=== PATIENT | female | born 1995 | race Caucasian/White ===

== ENCOUNTER 2021-06-06 04:05 | Emergency (ER) | payer BC, SELFPAY ==
--- NOTE | ~2021-06-06 | CT_ITS ---
EXAMINATION: CT abdomen pelvis w con DATE: 06/06/2021 05:55 INDICATION: Generalized abdominal pain, nausea and vomiting TECHNIQUE: Computed tomography (CT) of the abdomen and pelvis was performed with 100 cc Omnipaque 350 intravenous contrast. The dose-length product was 198.25 mGy-cm. Automated exposure control and iter ative reconstruction technique were employed. COMPARISON: None. FINDINGS: Lung bases are unremarkable. Heart size normal. No significant pleural or pericardial effus ion. No significant vascular abnormality. No lymphadenopathy. There is mild prominence of the colon w all, likely due to underdistention and normal contractility. No evidence for acute appendicitis. Nono bstructive bowel gas pattern. Fatty infiltration of the liver. The spleen, pancreas, adrenal glands and kidneys are unremarkable. G allbladder is present. There is levoscoliosis of the thoracolumbar spine. No acute osseous abnormalit y. There is an intravaginal contraceptive device. No free air or free fluid. IMPRESSION: 1. No acute abdominal abnormality. Reviewed, dictated and finalized at location A. SHOP SERVICE TECHNICIAN
[2021-06-06 04:11] VITALS: BP 134/93; PULSE 124; RESP 16; TEMP 36.7; O2SAT 100
--- NOTE | 2021-06-06 04:19 | ED.ABDPAIN ---
HPI - Abdominal Pain General Chief Complaint: Abdominal Pain <Luiz Cantrell MD - Last Filed: 06/06/21 07:16> Stated Complaint: Abd pain, N/V <Luiz Cantrell MD - Last Filed: 06/06/21 07:16> Time Seen by Provider: 06/06/21 04:09 <Luiz Cantrell MD - Last Filed: 06/06/21 07:16> History of Present Illness HPI narrative: 25-year-old female presenting to the emergency department for evaluation of nausea vomiting diarrhea. Patient states symptoms started approximately 4:00 today. Patient was having excessive diarrhea at work and went home and since going home she has had nonstop nausea and vomiting. Patient does describe intermittent left upper quadrant cramping that is worsened with emesis. Patient denies any previous abdominal surgical history. Patient denies any significant past medical history. <Luiz Cantrell MD - Last Filed: 06/06/21 07:16> Related Data Home Medications: Home Medications Medication Instructions Recorded Confirmed etonogestrel-ethinyl estradiol vag ring VAGINAL 06/06/21 [EluRyng] <Luiz Cantrell MD - Last Filed: 06/06/21 07:16> Allergies/Adverse Reactions: Allergies Allergy/AdvReac Type Severity Reaction Status Date / Time Sulfa (Sulfonamide Allergy Mild Hives Verified 06/06/21 04:23 Antibiotics) <Luiz Cantrell MD - Last Filed: 06/06/21 07:16> Review of Systems Review of Systems: APPEARANCE: Well appearing, no pain, no distress, well-nourished. HEAD: normocephalic, atraumatic. EYES: PERRLA/EOMI, conjunctivae clear. NECK: Supple. No adenopathy, no masses. RESPIRATORY: Airway patent, respirations nonlabored. Clear to auscultation bilaterally, no rales, rhonchi, wheezing. CARDIOVASCULAR: Regular rate and rhythm without murmurs rubs or gallops. ABDOMINAL: Nausea vomiting diarrhea, abdominal cramping MUSCULOSKELETAL: Moves all extremities. Strength/ROM intact, No edema, No calf tenderness. NEURO: Alert. SKIN: Warm, dry. Normal Color PSYCHIATRIC: Normal affect/mood. <Luiz Cantrell MD - Last Filed: 06/06/21 07:16> Exam Narrative: APPEARANCE: Well appearing, no pain, no distress, well-nourished. HEAD: normocephalic, atraumatic. EYES: PERRLA/EOMI, conjunctivae clear. NOSE: Normal no drainage RESPIRATORY: Airway patent, respirations nonlabored. Clear to auscultation bilaterally, no rales, rhonchi, wheezing. CARDIOVASCULAR: Regular rate and rhythm without murmurs rubs or gallops. ABDOMINAL: Mild right upper quadrant tenderness to palpation MUSCULOSKELETAL: Moves all extremities. Strength/ROM intact, No edema, No calf tenderness. NEURO: Alert. Cranial nerves II through XII intact. Good gait. Good coordination SKIN: Warm, dry. Normal Color <Luiz Cantrell MD - Last Filed: 06/06/21 07:16> Course Course Emergency Course: Patient was treated with Zofran and with Reglan for nausea. Patient was treated with Tylenol for her abdominal pain. On reevaluation patient states she does feel improved. At time of signout to Dr. Sun with a CT abdomen is pending. Anticipated plan is discharged to home pending the CT result. <Luiz Cantrell MD - Last Filed: 06/06/21 07:16> Received signout on the patient pending CT scan. Patient symptoms are improving at the time of signout. <Roland Sun MD - Last Filed: 06/06/21 12:21> Reevaluation(s) Reevaluation #1: Patient is resting comfortably reports feeling much improved results and plan reviewed with patient. Patient is comfortable with outpatient plan. <Roland Sun MD - Last Filed: 06/06/21 12:21> Date: 06/06/21 <Roland Sun MD - Last Filed: 06/06/21 12:21> Time: 08:07 <Roland Sun MD - Last Filed: 06/06/21 12:21> Vital Signs Vital signs: Vital Signs Temperature 36.7 C 06/06/21 04:11 Pulse Rate 124 H 06/06/21 04:11 Respiratory Rate 16 06/06/21 04:11 Blood Pressure 134/93 H 06/06/21 04:11 Pulse Oximetry 100 06/06/21
[2021-06-06] MEDS: SODIUM CHLORIDE 0.9% IV 1,000 ML 999 ML IV CONT ×2 (04:25→06:01)
[2021-06-06] MEDS: ONDANSETRON INJ 4 MG/2 ML VIAL IV PUSH (04:25)
[2021-06-06 04:58] LABS: Basophils Percent Auto 0.2 % (0.2-1.2); Eosinophils Absolute Auto 1.3 K/mm3 (0-0.3); Eosinophils Percent Auto 7.9 % (0-4.4); Hematocrit 45.7 % (37.0-47.0); Hemoglobin 16.2 g/dL (12.0-15.0); Immature Granulocyte Absolute 0.12 K/mm3 (0.00-0.031); Immature Granulocyte Percent A 0.7 % (0-0.5); Lymphocytes Absolute Auto 0.29 K/mm3 (0.9-3.2); Lymphocytes Percent Auto 1.8 % (18.3-44.2); Mean Corpuscular HGB Conc 35.4 g/dl (32-36); Mean Corpuscular Hemoglobin 31.2 pg (26-34); Mean Corpuscular Volume 87.9 fl (80-100); Mean Platelet Volume 9.9 fl (7.4-10.4); Monocytes Absolute Auto 0.3 K/mm3 (0.1-0.6); Monocytes Percent Auto 1.9 % (2.6-8.5); Neutrophils Absolute Auto 14.5 K/mm3 (1.3-6.7); Neutrophils Percent Auto 87.5 % (45.5-73.1); Platelet Count Result 307 k/mm3 (150-375); Red Cell Distribution Width 11.9 % (11.5-14.5); White Blood Count 16.5 K/mm3 (4.5-10.0)
[2021-06-06 05:21] LABS: Alanine Aminotransferase 24 U/L (4-35); Albumin Level 5.2 g/dL (3.5-5.1); Alkaline Phosphatase 98 U/L (38-126); Anion Gap 16 mmol/L (8-16); Aspartate Amino Transferase 36 U/L (14-36); Bilirubin,Total 1.2 mg/dL (0.2-1.3); Blood Urea Nitrogen 18 mg/dL (7-17); Calcium 10.3 mg/dL (8.4-10.2); Carbon Dioxide 14 mmol/L (22-30); Chloride 104 mmol/L (98-107); Estimated CRCL calculation 68 ml/min; Estimated Glomerular Filt Rate > 60; Glucose 197 mg/dL (65-110); Lactic Acid Reflex 2.6 mmol/L (0.7-2.1); Lipase 35 U/L (23-300); Potassium 4.3 mmol/L (3.4-5.0); Sodium 134 mmol/L (137-145)
[2021-06-06 05:33] VITALS: BP 115/80; PULSE 94; RESP 16; O2SAT 99
[2021-06-06 05:34] LABS: SARS-CoV-2 RNA PCR Negative
[2021-06-06] MEDS: METOCLOPRAMIDE HCL 10 MG TABLET PO (06:02)
[2021-06-06 06:27] LABS: Add Urine Microscopic? YES; Appearance Urine Clear (Clear); Bacteria Urine Trace /hpf; Bilirubin Urine Negative (Negative); Blood Urine Negative (Negative); Color Urine Yellow (Yellow); Glucose Urine UA Negative (Negative); Ketones Urine 1+ mg/dL (Negative); Leukocyte Esterase Ur Negative LEU/UL (Negative); Mucus Urine Few /lpf; Nitrate Urine Negative (Negative); Protein Urine 1+ mg/dL (Negative); Squamous Epithelial Cell Urine Rare /hpf (Few); Urobilinogen Urine Negative mg/dL (<2.0); WBC Urine 0-3 /hpf
[2021-06-06 06:29] LABS: Specific Grav Ur 1.025 (1.001-1.035)
[2021-06-06 06:34] VITALS: BP 120/76; PULSE 88; RESP 16; O2SAT 98
[2021-06-06 07:56] LABS: Reflex Lactic Acid Yes or No Add Lactic
[2021-06-06 08:17] VITALS: BP 101/60; PULSE 103; RESP 18; O2SAT 98
== END 2021-06-06 08:19 | disposition home or self-care (01) ==
PROVIDERS: Emergency Medicine; Emergency Provider Emergency Medicine; PCP Family Medicine
DX: R11.2 Nausea with vomiting, unspecified (principal); R19.7 Diarrhea, unspecified; Z20.822 Contact with and (suspected) exposure to COVID-19
CPT/HCPCS: 36415; 74177; 80053; 81001; 81025; 83605; 83690; 85025; 96361; 96365; 96375; 99284; A9270; C9803; J0131; J2405; J7030; Q9967; U0003; U0005

== ENCOUNTER 2023-03-26 08:03 | Emergency (ER) | payer BC, OTHER, SELFPAY ==
[2023-03-26] VITALS (9 sets, daily range): BP systolic 120–138; BP diastolic 80–99; PULSE 70–108; RESP 14–16; TEMP 36.4; O2SAT 95–100
--- NOTE | 2023-03-26 08:37 | ED.NAVMDI ---
HPI - Nausea/Vomiting/Diarrhea General Chief complaint: Nausea/Vomiting/Diarrhea Stated complaint: n/V Time Seen by Provider: 03/26/23 08:30 History of Present Illness HPI Narrative: Patient is a 27-year-old female who presents to the ER with with nausea/vomiting/diarrhea. symptoms began at midnight. Innumerable loose stools/emesis. No blood. No alleviating factors. Reports nieces were sick with a similar GI illness. Patient has felt febrile. Related Data Home Medications Medication Instructions Recorded Confirmed etonogestrel 0.12 mg-ethinyl vag ring vaginal 06/06/21 estradiol 0.015 mg/24 hr vaginal ring (EluRyng) Allergies Allergy/AdvReac Type Severity Reaction Status Date / Time Sulfa (Sulfonamide Allergy Mild Hives Verified 03/26/23 09:06 Antibiotics) Review of Systems Review of Systems: All systems reviewed & are unremarkable except as noted in HPI and below Constitutional: Constitutional: Reports chills, Reports fatigue and Reports fever(s) ENT: Denies nasal congestion and Denies sore throat Gastrointestinal: Gastrointestinal: Reports abdominal pain, Reports diarrhea, Reports nausea and Reports vomiting Genitourinary: Genitourinary: Reports no additional female genitourinary complaints Musculoskeletal: Musculoskeletal: Reports no additional musculoskeletal complaints PMFSH Past Medical History Medical History (Updated 03/26/23 @ 11:51 by Chi Ortega MD) Healthy female adult Surgical History Surgical History (Updated 03/26/23 @ 08:48 by Chi Ortega MD) No history of previous surgery Exam Narrative: GENERAL: Ill-appearing, well-nourished, and in no acute distress. HEAD: Normocephalic, atraumatic. EYES: PERRL and EOMI. ENT: Mucous membranes moist. CHEST: Clear to auscultation. No respiratory distress. HEART: Regular rate and rhythm. Normal peripheral pulses. ABDOMEN: Soft, mild discomfort in the right upper quadrant without guarding, nondistended. EXTREMITIES: Normal range of motion. No edema. SKIN: cool, dry, pale, no rash. NEURO: Alert and oriented x3. PSYCH: Normal mood and affect. Course Course Emergency Course: Patient resting comfortably. Able to tolerate ice chips. Has been aggressively hydrated. Multiple doses of antiemetics. Patient comfortable with discharge home with supportive care. Vital Signs Vital signs: Vital Signs Blood Pressure 126/92 H 03/26/23 08:34 Pulse Oximetry 100 03/26/23 08:34 Temperature 97.6 F 03/26/23 09:06 Pulse Rate 108 H 03/26/23 09:06 Respiratory Rate 16 03/26/23 09:06 Blood Pressure 128/98 H 03/26/23 09:06 Pulse Oximetry 100 03/26/23 09:06 Oxygen Delivery Room Air 03/26/23 09:06 MDM - Nausea/Vomiting/Diarrhea Lab Data 03/26/23 08:57 03/26/23 08:57 Labs: Lab Results 03/26/23 03/26/23 Range/Units 08:57 10:17 WBC 12.8 H (4.5-10.0) K/mm3 RBC 5.24 (4.2-5.4) M/mm3 Hgb 15.9 H (12.0-15.0) g/dL Hct 47.1 H (37.0-47.0) % MCV 89.9 (80-100) fl MCH 30.3 (26-34) pg MCHC 33.8 (32-36) g/dl RDW 12.3 (11.5-14.5) % Plt Count 314 (150-375) k/mm3 MPV 9.2 (7.4-10.4) fl Immature Gran % (Auto) Not Reportable Neut % (Auto) Not Reportable Lymph % (Auto) Not Reportable [place] % (Auto) Not Reportable Eos % (Auto) Not Reportable Baso % (Auto) Not Reportable Lymph # (Auto) Not Reportable [place] # (Auto) Not Reportable Eos # (Auto) Not Reportable Baso # (Auto) Not Reportable Abs Immat Gran (auto) Not Reportable Absolute Neuts (auto) Not Reportable Absolute Nucleated RBC Not Reportable Total Counted 100 Neutrophils % (Manual) 75 H (46-73) % Band Neutrophils % 17 H (0-6) % Lymphocytes % (Manual) 5.0 L (18-44) % Monocytes % (Manual) 3 (3-9) % Nucleated RBC % Not Reportable Abs Neuts (Manual) 11.77 H (1.7-7.2) K/mm3 Abs Lymphs (Manual)
[2023-03-26] MEDS: ONDANSETRON INJ 4 MG/2 ML VIAL IV PUSH ×2 (08:58→09:45)
[2023-03-26] MEDS: DICYCLOMINE HCL INJ 20 MG/2 ML VIAL IM (08:58)
[2023-03-26] MEDS: SODIUM CHLORIDE 0.9% IV 2,000 ML 999 ML IV CONT (08:59)
[2023-03-26 09:08] LABS: Hematocrit 47.1 % (37.0-47.0); Hemoglobin 15.9 g/dL (12.0-15.0); Mean Corpuscular HGB Conc 33.8 g/dl (32-36); Mean Corpuscular Hemoglobin 30.3 pg (26-34); Mean Corpuscular Volume 89.9 fl (80-100); Mean Platelet Volume 9.2 fl (7.4-10.4); Platelet Count Result 314 k/mm3 (150-375); Red Blood Count 5.24 M/mm3 (4.2-5.4); Red Cell Distribution Width 12.3 % (11.5-14.5); White Blood Count 12.8 K/mm3 (4.5-10.0)
[2023-03-26 09:17] LABS: Alanine Aminotransferase 24 U/L (6-35); Albumin Level 5.3 g/dL (3.5-5.1); Alkaline Phosphatase 92 U/L (38-126); Anion Gap 16 mmol/L (8-16); Aspartate Amino Transferase 32 U/L (14-36); Bilirubin,Total 1.3 mg/dL (0.2-1.3); Blood Urea Nitrogen 12 mg/dL (7-17); Calcium 10.4 mg/dL (8.4-10.2); Carbon Dioxide 19 mmol/L (22-30); Chloride 103 mmol/L (98-107); Estimated CRCL calculation 85 ml/min; Estimated Glomerular Filt Rate > 60; Glucose 164 mg/dL (65-110); Lipase 73 U/L (23-300); Potassium 4.1 mmol/L (3.4-5.0); Sodium 138 mmol/L (137-145)
[2023-03-26 09:19] LABS: Band Neutrophils Percent 17 % (0-6); Lymphocytes Absolute Manual 0.64 K/mm3 (1.1-4.5); Monocytes Absolute Manual 0.38 K/mm3 (0.1-0.90); Monocytes Percent Manual 3 % (3-9); Neutrophils Absolute Manual 11.77 K/mm3 (1.7-7.2); Neutrophils Percent Manual 75 % (46-73); Platelet Estimate Adequate (Adequate); Total Cells Counted 100
[2023-03-26 09:20] LABS: Schistocytes None Seen (NORMAL)
[2023-03-26] MEDS: MORPHINE SULFATE (*CRX) 4 MG/ML INJ IV PUSH (09:45)
[2023-03-26 10:25] LABS: Appearance Urine Cloudy (Clear); Bacteria Urine None Seen /hpf; Bilirubin Urine Negative (Negative); Blood Urine Negative (Negative); Color Urine Yellow (Yellow); Glucose Urine UA Negative (Negative); Ketones Urine 1+ mg/dL (Negative); Leukocyte Esterase Ur Negative LEU/UL (Negative); Nitrate Urine Negative (Negative); Non Pathogenic Casts 0-2; Protein Urine Negative (Negative); RBC Urine 0-2 /hpf (0-2); Specific Grav Ur 1.017 (1.001-1.035); Squamous Epithelial Cell Urine None seen /hpf (Few); Urobilinogen Urine 0.2 mg/dL (<2.0); WBC Urine 0-5 /hpf; pH Urine 5.5 (5.0-9.0)
[2023-03-26 10:27] LABS: Add Urine Microscopic? YES
[2023-03-26] MEDS: PROMETHAZINE HCL 25 MG/ML AMPUL 12.5 MG IV PUSH (11:57)
== END 2023-03-26 12:31 | disposition home or self-care (01) ==
PROVIDERS: Emergency Provider Emergency Medicine; PCP Family Medicine
DX: K52.9 Noninfective gastroenteritis and colitis, unspecified (principal)
CPT/HCPCS: 36415; 80053; 81001; 83690; 85025; 96361; 96372; 96374; 96375; 96376; 99284; J0500; J2270; J2405; J2550; J7030

== ENCOUNTER 2023-11-30 10:47 | Outpatient (CLI) | payer OTHER, SELFPAY ==
[2023-11-30 11:51] LABS: Beta HCG Quantitative 242.28 mIU/ML
== END 2023-11-30 10:48 | disposition home or self-care (01) ==
PROVIDERS: PCP Family Medicine; Visit Provider Obstetrics & Gynecology
DX: O20.0 Threatened abortion (principal); Z3A.00 Weeks of gestation of pregnancy not specified
CPT/HCPCS: 36415; 84702

== ENCOUNTER 2023-12-07 08:20 | Outpatient (RCR) | payer OTHER, SELFPAY ==
[2023-12-07 09:34] LABS: Beta HCG Quantitative 5.26 mIU/ML
== END 2024-03-06 23:59 | disposition home or self-care (01) ==
LOC: ANHLAB 08:20
PROVIDERS: PCP Family Medicine; Visit Provider Obstetrics & Gynecology
DX: O20.0 Threatened abortion (principal)
CPT/HCPCS: 36415; 84702

== ENCOUNTER 2024-01-17 11:42 | Emergency (ER) | payer OTHER, SELFPAY ==
--- NOTE | ~2024-01-17 | US_ITS ---
EXAMINATION: US OB <=14 wk fetus w TV DATE: 01/17/2024 14:56 INDICATION: Nausea, vomiting and diarrhea during first trimester TECHNIQUE: Real-time pelvic ultrasound utilizing both a transvaginal and transabdominal probe was pe rformed. The interpreting radiologist was not present for the study. COMPARISON: None. FINDINGS: The uterus measures 8.5 x 4.7 x 5.7 cm. There is an intrauterine gestational sac. A yolk sac and fet al pole are identified. The crown rump length measures 6-7 mm, which correlates with an estimated ges tational age of 6 weeks and 3 days. heart motion is identified measuring 137 beats per minute ( bpm) by M-mode Doppler. The right ovary measures 3.3 x 2.8 x 2.4 cm. The left ovary measures 3.7 x 2.6 x 1.8 cm. There are se veral small anechoic cysts/follicles at both ovaries, the largest on the left measuring 1.5 cm. There is increased vascular flow at the periphery of a thick-walled centrally anechoic 1.8 cm corpus luteu m cyst in the right ovary. Vascular flow identified with arterial and venous waveforms in both ovarie s on color Doppler. There is no free fluid in the pelvis. IMPRESSION: 1. Single living fetus with heart rate of 137 bpm. 2. Gestational age by ultrasound of 6 weeks 3 day(s) +/- 4 day(s) with ultrasound estimated date of delivery (JAYME) of 09/08/2024. Reviewed, dictated and finalized at location B. IMPRESSION: 1. Single living fetus with heart rate of 137 bpm. 2. Gestational age by ultrasound of 6 weeks 3 day(s) +/- 4 day(s) with ultraso und estimated date of delivery (JAYME) of 09/08/2024.
[2024-01-17 11:44] VITALS: BP 122/91; PULSE 115; RESP 20; TEMP 36.4; O2SAT 96
[2024-01-17] MEDS: ONDANSETRON INJ 4 MG/2 ML VIAL IV PUSH (12:01)
[2024-01-17] MEDS: SODIUM CHLORIDE 0.9% IV 1,000 ML 999 ML IV CONT (12:01)
--- NOTE | 2024-01-17 12:03 | ED.GENADULT ---
HPI - General Adult General Chief complaint: Nausea/Vomiting/Diarrhea Stated complaint: N/V/D Time Seen by Provider: 01/17/24 11:59 History of Present Illness HPI narrative: 28-year-old female presented to the emergency department for evaluation of persistent nausea vomiting and diarrhea. Patient is about 6 weeks . Patient denies any vaginal bleeding or vaginal discharge. Patient denies any lower abdominal pain. Related Data Home Medications Medication Instructions Recorded Confirmed etonogestrel 0.12 mg-ethinyl vag ring vaginal 06/06/21 estradiol 0.015 mg/24 hr vaginal ring (EluRyng) Allergies Allergy/AdvReac Type Severity Reaction Status Date / Time Sulfa (Sulfonamide Allergy Mild Hives Verified 01/17/24 12:04 Antibiotics) Review of Systems Review of Systems: All systems reviewed & are unremarkable except as noted in HPI and below PMFSH Past Medical History Medical History (Updated 01/17/24 @ 15:13 by Luiz Cantrell MD) Healthy female adult Surgical History Surgical History (Updated 03/26/23 @ 08:48 by Chi Ortega MD) No history of previous surgery Exam Narrative: APPEARANCE: Well appearing, no pain, no distress, well-nourished. HEAD: normocephalic, atraumatic. EYES: PERRLA/EOMI, conjunctivae clear. NOSE: Normal no drainage EARS:TMS clear with good light reflex. THROAT: Pharynx clear, no exudate. NECK: Supple. No adenopathy, no masses. RESPIRATORY: Airway patent, respirations nonlabored. Clear to auscultation bilaterally, no rales, rhonchi, wheezing. CARDIOVASCULAR: Regular rate and rhythm without murmurs rubs or gallops. ABDOMINAL: Soft, nontender, nondistended, normal bowel sounds MUSCULOSKELETAL: Moves all extremities. Strength/ROM intact, No edema, No calf tenderness. NEURO: Alert. Cranial nerves II through XII intact. Grossly intact SKIN: Warm, dry. Normal Color Course Vital Signs Vital signs: Vital Signs Temperature 97.5 F L 01/17/24 11:44 Pulse Rate 115 H 01/17/24 11:44 Respiratory Rate 20 01/17/24 11:44 Blood Pressure 122/91 H 01/17/24 11:44 Pulse Oximetry 96 01/17/24 11:44 Oxygen Delivery Room Air 01/17/24 11:44 Temperature 97.5 F L 01/17/24 11:44 Pulse Rate 77 01/17/24 15:18 Respiratory Rate 16 01/17/24 15:18 Blood Pressure 112/73 01/17/24 15:18 Pulse Oximetry 98 01/17/24 15:18 Oxygen Delivery Room Air 01/17/24 11:44 Medical Decision Making MDM Narrative Medical decision making narrative: 28-year-old female presented emergency department for evaluation for persistent nausea and vomiting. Patient is afebrile but does have a leukocytosis of 12.4 and hemoglobin of 14.7. Patient has no significant abnormalities on her CMP. Patient's beta hCG was 44,000. UA was positive for ketones but negative for infection. Ultrasound was ordered and did confirm a single live intrauterine of 6 weeks and 3 days. On re-evaluation patient states she does feel improved. Patient does not have any anti emetic medications at home and patient is being provided Zofran and Reglan for home. Patient was encouraged of close follow-up with her OB Gyne. Differential Diagnosis Differential Diagnosis: Dehydration, hyperemesis gravidarum Vital Signs Vital Signs: Vital Signs Temperature 97.5 F L 01/17/24 11:44 Pulse Rate 115 H 01/17/24 11:44 Respiratory Rate 20 01/17/24 11:44 Blood Pressure 122/91 H 01/17/24 11:44 Pulse Oximetry 96 01/17/24 11:44 Oxygen Delivery Room Air 01/17/24 11:44 Temperature 97.5 F L 01/17/24 11:44 Pulse Rate 77 01/17/24 15:18 Respiratory Rate 16 01/17/24 15:18 Blood Pressure 112/73 01/17/24 15:18 Pulse Oximetry 98 01/17/24 15:18 Oxygen Delivery Room Air 01/17/24 11:44 Lab Data Lab results reviewed: Yes I reviewed the patient's lab results. 01/17/24 12:02 01/17/24 12:02 Labs: Lab Results 01/17/24 01/17/24 Maciej
[2024-01-17 12:07] LABS: Basophils Percent Auto 0.2 % (0.2-1.2); Hematocrit 42.4 % (37.0-47.0); Hemoglobin 14.7 g/dL (12.0-15.0); Immature Granulocyte Absolute 0.14 K/mm3 (0.00-0.031); Immature Granulocyte Percent A 1.1 % (0-0.5); Lymphocytes Absolute Auto 0.41 K/mm3 (0.9-3.2); Lymphocytes Percent Auto 3.3 % (18.3-44.2); Mean Corpuscular HGB Conc 34.7 g/dl (32-36); Mean Corpuscular Hemoglobin 31.3 pg (26-34); Mean Corpuscular Volume 90.2 fl (80-100); Mean Platelet Volume 9.2 fl (7.4-10.4); Monocytes Absolute Auto 0.5 K/mm3 (0.1-0.6); Neutrophils Absolute Auto 11.3 K/mm3 (1.3-6.7); Neutrophils Percent Auto 91.4 % (45.5-73.1); Platelet Count Result 286 k/mm3 (150-375); Red Cell Distribution Width 11.7 % (11.5-14.5); White Blood Count 12.4 K/mm3 (4.5-10.0)
[2024-01-17 12:19] LABS: Alanine Aminotransferase 16 U/L (6-35); Albumin Level 4.8 g/dL (3.5-5.1); Alkaline Phosphatase 82 U/L (38-126); Anion Gap 15 mmol/L (4-12); Aspartate Amino Transferase 25 U/L (14-36); Bilirubin,Total 0.7 mg/dL (0.2-1.3); Blood Urea Nitrogen 9 mg/dL (7-17); Calcium 9.6 mg/dL (8.4-10.2); Carbon Dioxide 21 mmol/L (22-30); Chloride 101 mmol/L (98-107); Estimated CRCL calculation 98 ml/min; Estimated Glomerular Filt Rate > 60; Glucose 100 mg/dL (65-110); Lipase 80 U/L (23-300); Potassium 3.8 mmol/L (3.4-5.0); Sodium 137 mmol/L (137-145)
[2024-01-17 13:00] VITALS: BP 105/66; PULSE 105; RESP 20; O2SAT 100
[2024-01-17 13:04] LABS: Add Urine Microscopic? YES; Appearance Urine Clear (Clear); Bacteria Urine None Seen /hpf; Bilirubin Urine Negative (Negative); Blood Urine Negative (Negative); Color Urine Dark Yellow (Yellow); Glucose Urine UA Negative (Negative); Ketones Urine 2+ mg/dL (Negative); Leukocyte Esterase Ur Negative LEU/UL (Negative); Nitrate Urine Negative (Negative); Non Pathogenic Casts 0-2; Protein Urine Trace mg/dL (Negative); Squamous Epithelial Cell Urine None Seen /hpf (Few); Urobilinogen Urine 0.2 mg/dL (<2.0); WBC Urine 0-5 /hpf (0-3); pH Urine 5.5 (5.0-9.0)
[2024-01-17 13:30] VITALS: BP 114/67; PULSE 93; RESP 16; O2SAT 98
[2024-01-17] MEDS: METOCLOPRAMIDE HCL INJ 10 MG/2 ML VIAL IV PUSH (14:03)
--- NOTE | 2024-01-17 14:03 | PC.NURSE ---
Lab called regarding status of Beta HCG results.
[2024-01-17 15:18] VITALS: BP 112/73; PULSE 77; RESP 16; O2SAT 98
== END 2024-01-17 15:23 | disposition home or self-care (01) ==
PROVIDERS: Emergency Provider Emergency Medicine; PCP Family Medicine
DX: O21.9 Vomiting of pregnancy, unspecified (principal); Z3A.01 Less than 8 weeks gestation of pregnancy
CPT/HCPCS: 36415; 76801; 76817; 80053; 81001; 83690; 84702; 85025; 96361; 96374; 96375; 99284; J2405; J2765; J7030

== ENCOUNTER 2024-06-25 12:20 | Observation (INO) | payer OTHER, SELFPAY ==
--- NOTE | 2024-06-25 12:20 | OBADM ---
This patient, María Hendrickson, admitted to the OB room Labor/Delivery/Recovery 119 for observation. Patient/family oriented to hospital policies and general routines including ID bracelet, bed and alarms, visiting hours, pain management, procedures, bathroom and other care routines, personal items, smoking policy, room service/diet, and visiting hours. Patient/Family are encouraged to report perceived risks to care and to ask questions if they do not understand what they are told or what they should do.
[2024-06-25 12:30] VITALS: BMI 28.4
[2024-06-25 13:02] VITALS: PULSE 99; O2SAT 97
[2024-06-25 13:07] VITALS: PULSE 97; O2SAT 97
[2024-06-25 13:12] VITALS: PULSE 102; O2SAT 96
[2024-06-25 13:16] VITALS: BP 117/78; PULSE 104
[2024-06-25 13:17] VITALS: PULSE 98; O2SAT 96
[2024-06-25 13:22] VITALS: PULSE 104; O2SAT 96
--- OUTSIDE RECORDS SUMMARY | 2024-06-25 14:46 | XMS_ITS | Clinical Summary ---
Author Organization [address] Address [address] [place] [phone] Care Team Providers Care Railroad Police Officer Name Role Phone Micehle Ford MD Primary Care Provide r Allergies Active Allergy Reactions Criticality Noted Date Comments Sulfa (Sulfonamide Antibiotics) Rash Medium 05/2022 Medications EluRyng 0.12-0.015 mg/24 hr vaginal ring INSERT 1 RING VAGINALLY FOR 3 WEEKS THEN REMOVE FOR 1 WEEK 2 Active Active Problems No known active problems Social History Tobacco Use Types Packs/Day Years Used Date Smoking Tobacco: Never Tobacco Cessation:Counseling Given: Not Answered Personal Safety Answer Date Recorded Getting School Help Needed Not on file 06/26 Comments Unknown Sex and Gender Information Value Date Recorded Sex Assigned at Not on file Legal Sex Female 9:12 PM ADMISSION NURSE Gender Identity Not on file Sexual Orientation Not on file Obstetrics History Last Filed Vital Signs Vital Sign Reading Time Taken Comments Blood Pressure 132/94 06/02/2022 9:54 AM ADMISSION NURSE Pulse 74 06/02/2022 9:54 AM ADMISSION NURSE Temperature 36.9 C (98.4 F) 06/02/2022 9:54 AM ADMISSION NURSE Respiratory Rate 18 06/02/2022 9:54 AM ADMISSION NURSE Oxygen Saturation 99% 06/02/2022 9:54 AM ADMISSION NURSE Inhaled Oxygen Concentration - - Weight 57.7 kg (127 lb 1.6 oz) 06/02/2022 9:54 A M ADMISSION NURSE Height 152.4 cm (5') 06/02/2022 9:54 AM ADMISSION NURSE Body Mass Index 24.82 06/02/2022 9:54 AM ADMISSION NURSE Plan of Treatment Health Maintenance Due Date Last Done Comments Cervical Cancer Screening 1996 Depression Screening 1996 Hepatitis C Screening 1996 Varicella Vaccines (1 of 2 - 13+ 2-dose series) 2009 Regular Well Visit/Exam 18-64 2014 Covid-19 Vaccine (4 - 2023- season) 2024 05/05/2021, 05/12/2020, 04/21/2020 Influenza Vaccine (#1) 2024 7, 02/10/2016, 03/10/2015, Additional history exists DTaP/Tdap/Td Vaccine (8 - Td or Tdap) 12/23/2030 12/23/2020, 11/23/2010, 11/17/2001, Additional history exists Hepatitis B Screening Completed 08/12/1997 , 1996, 1996 HPV Vaccines Completed 05/21/2007, 01/01, 11/23/2006 Pneumococcal vaccine <65 Aged Out No longer eligible based on patient's age to complete this [place] [address] COUNTS INCLUDE 234 BEDS AT THE [facility] [employer] Address: [facility] [id number] [place] [address] Care Teams Railroad Police Officer Relationship Specialty Start Date End Date Michele Ford MD [address] [place] [address] PCP - General 05/04/17
--- OUTSIDE RECORDS SUMMARY | 2024-06-25 14:46 | XMS_ITS | Referral Summary ---
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:12 PM HEAD PORTER Gender Identity Not on file Sexual Orientation Not on file Last Filed Vital Signs Vital Sign Reading Time Taken Comments Blood Pressure 132/94 06/02/2022 9:54 AM HEAD PORTER Pulse 74 06/02/2022 9:54 AM HEAD PORTER Temperature 36.9 C (98.4 F) 06/02/2022 9:54 AM HEAD PORTER Respiratory Rate 18 06/02/2022 9:54 AM HEAD PORTER Oxygen Saturation 99% 06/02/2022 9:54 AM HEAD PORTER Inhaled Oxygen Concentration - - Weight 57.7 kg (127 lb 1.6 oz) 06/02/2022 9:54 A M HEAD PORTER Height 152.4 cm (5') 06/02/2022 9:54 AM HEAD PORTER Body Mass Index 24.82 06/02/2022 9:54 AM HEAD PORTER Plan of Treatment Not on file Insurance [employer] [facility] [employer] Address: [facility] [id number] [place] [address] Care Teams Line Service Attendant Relationship Specialty Start Date End Date Michele Ford MD [address] [place], [place] [id number] PCP - General 05/04/17
--- NOTE | 2024-06-26 07:56 | PM.OBTRLD ---
OB - Triage/Final Diagnosis Visit Information Date of evaluation: 06/25/24 Reason for evaluation: decreased movement Comments/Additional reasons for admission: I have assessed the risk for this patient, María Hendrickson, and determined that she would benefit from observation care. Evaluation Vital signs: Vital Signs - 24 hr 06/25/24 13:02 06/25/24 13:07 06/25/24 13:12 Pulse Rate Blood Pressure Pulse Oximetry 97 97 96 06/25/24 13:16 06/25/24 13:17 06/25/24 13:22 Pulse Rate 104 H Blood Pressure 117/78 Pulse Oximetry 96 96
== END 2024-06-25 15:34 | disposition home or self-care (01) ==
PROVIDERS: Admitting Provider Obstetrics & Gynecology; PCP Family Medicine; Visit Provider Obstetrics & Gynecology
DX: O36.8130 Decreased fetal movements, third trimester, not applicable or unspecified (principal); Z3A.29 29 weeks gestation of pregnancy
CPT/HCPCS: G0378; G0379

== ENCOUNTER 2024-09-07 00:28 | Inpatient (IN) | payer OTHER, SELFPAY ==
[2024-09-07] VITALS (299 sets, daily range): BP systolic 76–142; BP diastolic 43–123; PULSE 31–154; RESP 18–20; TEMP 36.6–37.4; O2SAT 84–100; BMI 31.4
--- OUTSIDE RECORDS SUMMARY | 2024-09-07 00:51 | XMS_ITS | Clinical Summary ---
Author Organization [address] Address [address] [place] [phone] Care Team Providers Care Sales Engagement Manager Name Role Phone Adrian Scruggs DO Primary Care Provider Allergies Active Allergy Reactions Criticality Noted Date Comments Sulfa (Sulfonamide Antibiotics) Rash Medium 05/2022 Medications vit no.124/iron/foli c ( VITAMIN ORAL) Take by mouth Active Active Problems Problem Noted Date Diagnosed Date Routine physical examination 07/31/2024 Overview (07/31/2024): July 31, 2024 Encounters Date Type Department Care Team Description 07/31/2024 7:00 AM CDT Office Visit [facility] Primary Care [address] [place] [phone] Adrian Scruggs DO Routine physical examination (Primary Dx); 34 weeks gestation of from Last 3 Months Immunizations Immunization Administration Dates Next Due DTP 11/17/2001 DTaP 06/03/1998 DTaP / HiB 05/15/1997,03/20/1997,01/14/1997 HPV, Quadrivalent 05/21/2007,01/27/2007,11/24/19 07 Hep B, Adolescent or Pediatric 1996,1996 Hep B, Dialysis 08/12/1997 Hib (PRP-T) 06/04/1998 Influenza, Quadrivalent, Spl it, Intramuscular 01/24/2017,03/10/2015,03/11/2014 Influenza, Quadrivalent, Spl it, Preservative Free, Intramuscular 02/10/2016 Influenza, Trivalent, IM (MDV) 02/12/2013,2011,03/10/2011 Influenza, Unspecified 02/06/2024 MMR 11/17/2001,11/22/1997 Meningococcal MCV4P (Menactra) 12/07/2013,2010 OPV 11/17/2001, 8,03/20/1997,01/14 RSV, Bivalent, Protein Subun it Rsvpref, Diluent (Abrysvo) 07/16/2024 Tdap 07/16/2024,12/23/2020,11/23/2010 Family History Medical History Relation Name Comments No Known Problems Father No Known Problems Mother Relation Name Status Comments Father Alive Mother Alive Social History Tobacco Use Types Packs/Day Years Used Date Smoking Tobacco: Never Tobacco Cessation:Counseling Given: Not Answered AUDIT-C Answer Date Recorded Q1: How often do you have a drink containing alc ohol? 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 Gender Identity Not on file Sexual Orientation Not on file Obstetrics History Last Filed Vital Signs Vital Sign Reading Time Taken Comments Blood Pressure 116/70 07/31/2024 7:08 AM CDT Pulse 84 07/31/2024 7:08 AM CDT Temperature 36.3 C (97.4 F) 07/31/2024 7:08 AM CDT Respiratory Rate 16 07/31/2024 7:08 AM CDT Oxygen Saturation 97% 07/31/2024 7:08 AM CDT Inhaled Oxygen Concentration - - Weight 72.6 kg (160 lb) 07/31/2024 7:08 AM CDT Height 152.4 cm (5') 07/31/2024 7:08 AM CDT Body Mass Index 31.25 07/31/2024 7:08 AM CDT Plan of Treatment Health Maintenance Due Date Last Done Comments Cervical Cancer Screening 1996 Hepatitis C Screening 1996 Depression Screening 07/31/2025 07/31/2024 Regular Well Visit/Exam 18-64 07/31/2025 07/31/2024 Varicella Vaccines (1 of 2 - 13+ 2-dose series) 08/04/2025 Postponed from 2009 (Patient declined, but will receive in the future) DTaP/Tdap/Td Vaccine (9 - Td or Tdap) 07/16/2034 07/16/2024, 12/23/2020, 11/23/2010, Additional history exists Hepatitis B Screening Completed 08/12/1997 , 1996, 1996 HPV Vaccines Completed 05/21/2007, 01/01, 11/23/2006 Influenza Vaccine Completed 02/06/2024, , 02/10/2016, Additional history exists Pneumococcal vaccine <65 Aged Out No longer eligible based on patient's age to complete this topic Insurance [employer] Address: [facility] [id number] [place] [address] Care Teams Sales Engagement Manager Relationship Specialty Start Date End Date Adrian Scruggs DO [address] [place] [phone] PCP - General Family Medicine 07/31/24
--- OUTSIDE RECORDS SUMMARY | 2024-09-07 00:51 | XMS_ITS | Referral Summary ---
Author Organization [address] Address [address] [place] [phone] Care Team Providers Care Log Raft Worker Name Role Phone Adrian Scruggs DO Primary Care Provider Encounters Date Type Department Care Team Description 07/31/2024 7:00 AM CDT Office Visit [facility] Primary Care [address] [place] [phone] Adrian Scruggs DO Routine physical examination (Primary Dx); 34 weeks gestation of from Last 3 Months Allergies Active Allergy Reactions Criticality Noted Date Comments Sulfa (Sulfonamide Antibiotics) Rash Medium 05/2022 Medications vit no.124/iron/foli c ( VITAMIN ORAL) Take by mouth Active Active Problems Problem Noted Date Diagnosed Date Routine physical examination 07/31/2024 Overview (07/31/2024): July 31, 2024 Immunizations Immunization Administration Dates Next Due DTP [...] it Rsvpref, Diluent (Abrysvo) 07/16/2024 Tdap 07/16/2024,12/23/2020,11/23/2010 Social History Tobacco Use Types Packs/Day Years [...] on file Legal Sex Female 9:12 PM SENIOR CARE SPECIALIST Gender Identity Not on file Sexual Orientation [...] 07/31/2024 7:08 AM CDT Plan of Treatment Not on file Insurance [employer] [facility] [employer] Address: [facility] [id number] [place] [address] Care Teams Log Raft Worker Relationship Specialty Start Date End Date Adrian Scruggs DO [address] [place] [phone] PCP - General Family Medicine 07/31/24
--- NOTE | 2024-09-07 01:02 | LDADM ---
This patient, María Hendrickson, was admitted to Labor/Delivery/Recovery 105 on 09/07/24 at 00:28. Plans for labor, pain management and were discussed with patient. Patient/family oriented to hospital policies and general routines including ID bracelet, bed and alarms, visiting hours, pain management, procedures, bathroom and other care routines, personal items, smoking policy, room service/diet and guest tray routines, infant security routines, and visiting hours. Patient/Family are encouraged to report perceived risks to care and to ask questions if they do not understand what they are told or what they should do. See OBIX for further documentation.
[2024-09-07] MEDS: LACTATED RINGERS 1,000 ML 125 ML IV CONT ×3 (01:15→11:48)
[2024-09-07 01:23] LABS: Basophils Absolute Auto 0.1 K/mm3 (0.0-0.1); Basophils Percent Auto 0.4 % (0.2-1.2); Eosinophils Absolute Auto 0.1 K/mm3 (0-0.3); Eosinophils Percent Auto 0.4 % (0-4.4); Hematocrit 37.9 % (37.0-47.0); Hemoglobin 12.6 g/dL (12.0-15.0); Immature Granulocyte Percent A 6.8 % (0-0.5); Lymphocytes Absolute Auto 2.13 K/mm3 (0.9-3.2); Lymphocytes Percent Auto 13.1 % (18.3-44.2); Mean Corpuscular HGB Conc 33.2 g/dl (32-36); Mean Corpuscular Hemoglobin 29.9 pg (26-34); Mean Corpuscular Volume 89.8 fl (80-100); Monocytes Absolute Auto 0.8 K/mm3 (0.1-0.6); Monocytes Percent Auto 5.2 % (2.6-8.5); Neutrophils Absolute Auto 12.1 K/mm3 (1.3-6.7); Neutrophils Percent Auto 74.1 % (45.5-73.1); Platelet Count Result 179 k/mm3 (150-375); Red Blood Count 4.22 M/mm3 (4.2-5.4); Red Cell Distribution Width 12.7 % (11.5-14.5); White Blood Count 16.3 K/mm3 (4.5-10.0)
--- NOTE | 2024-09-07 01:47 | P.PNAN_ITS ---
Anes - Eval Pre Procedure Procedure: Labor Epidural Date/Time: 09/07/24 01:47 Surgeon: Aftab Becerra Preop Diagnosis: Labor Pain Pre Op Diagnosis: Contractions Patient Data Age: 28 Gender: F Height: 1.52 m Weight: 73 kg Last Vital Signs Pulse 75 09/07/24 01:29 BP 137/83 09/07/24 01:29 Pulse Ox 97 09/07/24 01:46 O2 Del Method Room Air 09/07/24 01:02 Allergies Allergy/AdvReac Type Severity Reaction Status Date / Time Sulfa (Sulfonamide Allergy Mild Hives Verified 08/10/24 15:52 Antibiotics) Home Medications ?Medication ?Instructions ?Recorded ?Confirmed ?Type docusate sodium 100 mg capsule 100 mg PO DAILY 08/10/24 08/10/24 History (Colace) vit no.95-ferrous 1 tablet PO DAILY 08/10/24 08/10/24 History fumarate 28 mg-folic acid 800 mcg tablet () Laboratory Tests 09/07/24 01:09 WBC Pending RBC Pending Hgb Pending Hct Pending MCV Pending MCH Pending MCHC Pending RDW Pending Plt Count Pending MPV Pending Immature Gran % (Auto) Pending Neut % (Auto) Pending Lymph % (Auto) Pending [place] % (Auto) Pending Eos % (Auto) Pending Baso % (Auto) Pending Lymph # (Auto) Pending [place] # (Auto) Pending Eos # (Auto) Pending Baso # (Auto) Pending Abs Immat Gran (auto) Pending Absolute Neuts (auto) Pending Absolute Nucleated RBC Pending Nucleated RBC % Pending HIV 1&2 Ab/P24 Ag 4thGn Pending Blood Type Pending Antibody Screen Pending : gestational age (, JAYME 09/08/24) Patient hx anesthesia problems: none Family hx anesthesia problems: none Results Review: All pre-operative results and documents have been reviewed as part of the pre- operative evaluation. [facility] Past Medical History Medical History Healthy female adult Surgical History Surgical History No history of previous surgery Family History Family History Grandparent Diabetes mellitus Grandparent Chronic obstructive pulmonary disease Grandparent Lung cancer Cancer of kidney Social History Social History Smoking status: Never smoker Substance use: never Do You Feel Safe in your Home?: Yes Lack of Transportation: No Lack of Food: Never True Current Housing: I Have Housing Concerned About Future Housing: No Difficulty Paying Gas/Electric Bills: No Difficulty Paying for Meds: No Currently Unemployed: No Education: Bachelor's Degree Difficulty w/ Childcare or Family Care: No Spiritual care concerns: No Exam Day of Procedure 09/07/24 01:47 Patient weight: normal Heart: regular rate and rhythm Lungs: normal air movement Airway: Mallampati scale class II Neurological: alert and oriented
[2024-09-07 01:54] LABS: Syphilis IgG/IgM Antibody Negative (Negative)
[2024-09-07 02:07] LABS: HIV 1/2 Ab P24 Ag Result Negative (Negative)
--- NOTE | 2024-09-07 04:44 | PM.IMHP ---
H&P: HPI History of Present Illness Date/Time: 09/07/24 04:44 Chief Complaint: Labor at term Narrative: A 28-year-old 2 para 0 whose last menstrual period is unknown but EDC is 09/08/2024 confirmed by 10 week ultrasound presents at 39 and half weeks gestation in active labor she is positive for rupture membranes before back is felt she failed her diabetic screen 150 with passed her 3hour. She is negative for group B strep rupture of membranes this morning shows clear fluid Review of Systems Review of Systems: All systems reviewed & are unremarkable except as noted in HPI and below PMFSH Past Medical History Medical History Healthy female adult Surgical History Surgical History No history of previous surgery Family History Family History Grandparent Diabetes mellitus Grandparent Chronic obstructive pulmonary disease Grandparent Lung cancer Cancer of kidney Social History Social History Smoking status: Never smoker Substance use: never Do You Feel Safe in your Home?: Yes Lack of Transportation: No Lack of Food: Never True Current Housing: I Have Housing Concerned About Future Housing: No Difficulty Paying Gas/Electric Bills: No Difficulty Paying for Meds: No Currently Unemployed: No Education: Bachelor's Degree Difficulty w/ Childcare or Family Care: No Spiritual care concerns: No Meds Home Medications and Allergies Home Medications ?Medication ?Instructions ?Recorded ?Confirmed ?Type docusate sodium 100 mg capsule 100 mg PO DAILY 08/10/24 08/10/24 History (Colace) vit no.95-ferrous 1 tablet PO DAILY 08/10/24 08/10/24 History fumarate 28 mg-folic acid 800 mcg tablet () Allergies Allergy/AdvReac Type Severity Reaction Status Date / Time Sulfa (Sulfonamide Allergy Mild Hives Verified 08/10/24 15:52 Antibiotics) Vital Signs Vital Signs - 24 hr 09/07/24 00:59 09/07/24 01:02 09/07/24 01:29 Temperature Pulse Rate 83 75 Blood Pressure 134/88 137/83 Pulse Oximetry Oxygen Delivery Room Air 09/07/24 01:46 09/07/24 01:50 09/07/24 01:51 Temperature Pulse Rate 102 H Blood Pressure 135/89 Pulse Oximetry 97 98 Oxygen Delivery 09/07/24 01:56 09/07/24 01:59 09/07/24 02:01 Temperature Pulse Rate 77 84 Blood Pressure 134/73 117/61 Pulse Oximetry 98 97 Oxygen Delivery 09/07/24 02:04 09/07/24 02:06 09/07/24 02:07 Temperature Pulse Rate 71 89 Blood Pressure 128/68 125/74 Pulse Oximetry 98 Oxygen Delivery 09/07/24 02:09 09/07/24 02:11 09/07/24 02:12 Temperature Pulse Rate 68 75 Blood Pressure 123/66 116/74 Pulse Oximetry 97 Oxygen Delivery 09/07/24 02:14 09/07/24 02:16 09/07/24 02:17 Temperature Pulse Rate 85 77 Blood Pressure 111/65 116/60 Pulse Oximetry 97 Oxygen Delivery 09/07/24 02:20 09/07/24 02:21 09/07/24 02:22 Temperature Pulse Rate 88 75 Blood Pressure 105/63 111/55 L Pulse Oximetry 97 Oxygen Delivery 09/07/24 02:24 09/07/24 02:25 09/07/24 02:27 Temperature Pulse Rate 68 83 Blood Pressure 104/59 L 118/84 Pulse Oximetry 94 Oxygen Delivery 09/07/24 02:29 09/07/24 02:30 09/07/24 02:32 Temperature Pulse Rate 91 86 Blood Pressure 121/75 116/78 Pulse Oximetry 96 Oxygen Delivery 09/07/24 02:34 09/07/24 02:35 09/07/24 02:37 Temperature Pulse Rate 85 83 Blood Pressure 115/67 119/69 Pulse Oximetry 96 Oxygen Delivery 09/07/24 02:39 09/07/24 02:40 09/07/24 02:42 Temperature Pulse Rate 90 Blood Pressure 125/87 Pulse Oximetry 97 97 Oxygen Delivery 09/07/24 02:44 09/07/24 02:47 09/07/24 02:49 Temperature Pulse Rate 87 76 79 Blood Pressure 93/80 L 123/65 113/73 Pulse Oximetry 96 Oxygen Delivery 09/07/24 02:52 09/07/24 02:54 09/07/24 02:57 Temperature Pulse Rate 75 82 78 Blood Pressure 114/62 115/62 105/88 Pulse Oximetry 96 96 Oxygen Delivery 09/07/24 03:02 09/07/24 03:07 09/07/24 03:12 Temperature Pulse Rate Blood Pressure Pulse Oximetry 97 97 97 Oxygen Delivery 09/07/24 03:15 09/07/24 03:17 09/07/24 03:22 Temperature Pulse Rate 75 Blood Pressure 111/63 Pulse Oximetry 97 97 Oxygen Delivery 09/07/24 03:27 09/07/24 03:29 09/07/24 03:32 Temperature Pulse Rate 66 Blood Pressure 105/57 L Pulse Oximetry 96 98 Oxygen Delivery 09/07/24 03:37 09/07/24 03:42 09/07/24 03:45 Temperature Pulse Rate 82 Blood Pressure 101/50 L Pulse Oximetry 96 97 Oxygen Delivery 09/07/24 03:47 09/07/24 03:52 09/07/24 03:57 Temperature Pulse Rate Blood Pressure Pulse Oximetry 97 97 98 Oxygen Delivery 09/07/24 03:59 09/07/24 04:02 09/07/24 04:07 Temperature Pulse Rate 67 Blood Pressure 98/51 L Pulse Oximetry 98 97 Oxygen Delivery 09/07/24 04:12 09/07/24 04:16 09/07/24 04:18 Temperature 99.3 F Pulse Rate Blood Pressure Pulse Oximetry 97 98 97 Oxygen Delivery 09/07/24 04:23 09/07/24 04:28 09/07/24 04:29 Temperature Pulse Rate 76 Blood Pressure 119/77 Pulse Oximetry 98 98 Oxygen Delivery 09/07/24 04:31 09/07/24 04:36 09/07/24 04:42 Temperature Pulse Rate Blood Pressure Pulse Oximetry 98 98 97 Oxygen Delivery Exam Const: General: cooperative, healthy appearing and comfortable Nutritional Appearance: average body habitus Orientation/consciousness: oriented to person, oriented to place and oriented to time HENMT: Head: normal to inspection Resp: Effort & Inspection: normal respiratory effort Cardio: Rate: regular rate Rhythm: regular rhythm Heart sounds: S1 normal heart sound present and S2 normal heart sound present GI: Inspection: normal to inspection (Gravid soft uterus) : External Female Exam: normal external appearance Speculum Exam - Vagina: normal appearance of the vagina Speculum Exam - Cervix: normal appearance of the cervix (Cervix 4/80/2. AROM questionable meconium. FHTs of) H&P: Results Labs Labs: Short CBC 09/07/24 Range/Units 01:09 WBC 16.3 H (4.5-10.0) K/mm3 Hgb 12.6 (12.0-15.0) g/dL Hct 37.9 (37.0-47.0) % Plt Count 179 (150-375) k/mm3 Assessment and Plan Assessment and plan (1) Term : Code(s): Z34.90 - Encounter for supervision of normal , unspecified, unspecified trimester Status: Acute Plan Spontaneous vaginal delivery expected. She has an epidural and that is working.
[2024-09-07] MEDS: OXYTOCIN 30 UNITS/NS 500 ML 30 UNITS/500 ML BAG IV CONT (06:26)
--- NOTE | 2024-09-07 10:12 | PM.OBPNLAB ---
Pain Control Date/time seen: 09/07/24 10:12 Pain control: tolerating well and epidural Pelvic Exam Dilation (cm): 5 Effacement (%): 80 station: -1 Amniotic membrane status: Leaking
[2024-09-07] MEDS: diphenhydrAMINE HCl INJ 50 MG/ML VIAL 25 MG IV PUSH (10:26)
[2024-09-07] MEDS: SODIUM CHLORIDE 0.9% IV 300 ML 600 ML I-UTERINE (10:30)
--- NOTE | 2024-09-07 12:43 | PM.OBPNLAB ---
Pain Control Date/time seen: 09/07/24 12:43 Pain control: tolerating well and epidural Pelvic Exam Dilation (cm): 7 Effacement (%): 80 station: -1 Amniotic membrane status: Leaking
[2024-09-07] MEDS: ONDANSETRON INJ 4 MG/2 ML VIAL IV PUSH (14:34)
--- NOTE | 2024-09-07 15:06 | PM.OBPNLAB ---
Pain Control Date/time seen: 09/07/24 15:06 Pain control: tolerating well and epidural Pelvic Exam Dilation (cm): 10 Effacement (%): 100 station: 0 Amniotic membrane status: Leaking
--- NOTE | 2024-09-07 16:57 | PM.OBPRVD ---
OB - Vaginal Delivery Note Procedure Delivery date: 09/07/24 Induction method: None Delivery augmentation: Pitocin Delivery monitor: External FHT, External Uterine and Internal Uterine Route of delivery: Episiotomy description: None Laceration Description: Perineal - 2nd Degree Delivery repair: vicryl Specimen: No Quantitative Blood Loss (ml): 162 Anesthesia type: Epidural Disposition: Floor Complications: No immediate complications Narrative: Patient was admitted with spontaneous l rupture membranes prior to admission a forebag was noted and artificial rupture membranes perform early a.m.. She had epidural anesthesia placed progressive unremarkable 1st stage of labor. She did have low-dose of Pitocin placed and meconium fluid was noted. IUPC had been placed earlier. When she was complete she pushed delivered head spontaneously in the ZACKERY position. Anterior posterior shoulder delivered spontaneously. Cord clamped x2 and cut infant placed in warmer given Apgars of 8 [id number] 9 [id number]. Cord blood was drawn. Placenta delivered intact spontaneously. Twenty of Pitocin placed IV to help firm the uterus. After inspecting all vagina a small second-degree laceration was noted and running 0 Vicryl was placed QBL was 162cc. All sponge, needle, instrument counts were correct. There were no immediate complications [place] Baby Date of : 09/07/24 Time of : 16:46 Gestational Age by Date: 39 gender: Male presentation: vertex position: Right Occiput Anterior Placenta delivery description: Spontaneous Cord Vessel Description: 3 Vessels score one minute: 8 score five minutes: 9
--- NOTE | 2024-09-07 17:00 | P.DS_ITS ---
DS: Admitting Diagnosis Discharge Date 09/09/24 <Radha Perera MD - Last Filed: 09/09/24 09:36> Admitting Diagnosis Term <Adrian Becerra MD - Last Filed: 09/10/24 06:36> DS: Discharge Diagnosis Discharge Diagnosis (1) Term : Code(s): Z34.90 - Encounter for supervision of normal , unspecified, unspecified trimester <Adrian Becerra MD - Last Filed: 09/10/24 06:36> Status: Acute <Adrian Becerra MD - Last Filed: 09/10/24 06:36> DS: Summary Hospital Course Reason for hospitalization: Patient was admitted early a.m. of 09/07/2024 with spontaneous rupture membranes and underwent spontaneous vaginal delivery <Adrian Becerra MD - Last Filed: 09/10/24 06:36> Hospital Course: Patient's hospital course unremarkable. She remained afebrile. She was up, voiding without difficulty, eating regular diet, ambulating, and generally without complaints. <Adrian Beecrra MD - Last Filed: 09/10/24 06:36> Time Spent with Patient Time attestation: Total time spent providing and/or coordinating discharge services: <Adrian Becerra MD - Last Filed: 09/10/24 06:36> Exam Const: General: cooperative, healthy appearing and comfortable <Adrian Becerra MD - Last Filed: 09/10/24 06:36> Nutritional Appearance: average body habitus <Adrian Becerra MD - Last Filed: 09/10/24 06:36> Orientation/consciousness: oriented to person, oriented to place and oriented to time <Adrian Becerra MD - Last Filed: 09/10/24 06:36> HENMT: Head: normal to inspection <Adrian Becerra MD - Last Filed: 09/10/24 06:36> Resp: Effort & Inspection: normal respiratory effort <Adrian Becerra MD - Last Filed: 09/10/24 06:36> Cardio: Rate: regular rate <Adrian Becerra MD - Last Filed: 09/10/24 06:36> Rhythm: regular rhythm <Adrian Becerra MD - Last Filed: 09/10/24 06:36> Heart sounds: S1 normal heart sound present and S2 normal heart sound present <Adrian Becerra MD - Last Filed: 09/10/24 06:36> GI: Inspection: normal to inspection (Gravid soft uterus) <Adrian Becerra MD - Last Filed: 09/10/24 06:36> : External Female Exam: normal external appearance <Adrian Becerra MD - Last Filed: 09/10/24 06:36> Speculum Exam - Vagina: normal appearance of the vagina <Adrian Becerra MD - Last Filed: 09/10/24 06:36> Speculum Exam - Cervix: normal appearance of the cervix (Cervix 80/2. AROM questionable meconium. FHTs of) <Adrian Becerra MD - Last Filed: 09/10/24 06:36> DS: Data Data Completed and Pending Labs on day of discharge: Labs from last 24 hours 09/07/24 01:09 WBC 16.3 H RBC 4.22 Hgb 12.6 Hct 37.9 MCV 89.8 MCH 29.9 MCHC 33.2 RDW 12.7 Plt Count 179 MPV 11.0 H Immature Gran % (Auto) 6.8 H Neut % (Auto) 74.1 H Lymph % (Auto) 13.1 L [place] % (Auto) 5.2 Eos % (Auto) 0.4 Baso % (Auto) 0.4 Lymph # (Auto) 2.13 [place] # (Auto) 0.8 H Eos # (Auto) 0.1 Baso # (Auto) 0.1 Abs Immat Gran (auto) 1.10 H Absolute Neuts (auto) 12.1 H Absolute Nucleated RBC 0.000 Nucleated RBC % 0.0 Syphilis IgG/IgM Ab Negative HIV 1&2 Ab/P24 Ag 4thGn Negative Blood Type O Positive Antibody Screen Negative <Adrian Becerra MD - Last Filed: 09/10/24 06:36> Discharge Plan Discharge Attending physician on discharge: Adrian York <Adrian Becerra MD - Last Filed: 09/10/24 06:36> Adrian York <Radha Perera MD - Last Filed: 09/09/24 09:36> Discharging Clinician: Radha Perera <Adrian Becerra MD - Last Filed: 09/10/24 06:36> Radha Perera <Radha Perera MD - Last Filed: 09/09/24 09:36> Patient Disposition: Home <Adrian Becerra MD - Last Filed: 09/10/24 06:36> Activity: may shower, no straining and pelvic rest <Adrian Becerra MD - Last Filed: 09/10/24 06:36> may shower, no straining and pelvic rest <Radha Perera MD - Last Filed: 09/09/24 09:36> Diet: heart healthy <Adrian Becerra MD - Last Filed: 09/10/24 06:36> heart healthy <Radha Perera MD - Last Filed: 09/09/24 09:36> Wound Care Instructions: follow printed instructions <Adrian Becerra MD - Last Filed: 09/10/24 06:36> follow printed instructions <Radha Perera MD - Last Filed: 09/09/24 09:36> Discharge Instructions: Education: Mom and Baby Guide Given to: Mother Follow-Up: Call your delivering provider's office for an appointment to be seen in: 6 Weeks Mom and baby should come to the [facility] for the follow-up appointment. Appointment Date/Time: September 10, 2024 at 9:00 am What to expect at your follow-up visit: Blood Pressure Check Physical Assessment Call [phone] if you are unable to keep your appointment time. BREAST CARE: * Wear a snug supportive bra. * For engorgement discomfort: Breast Feeding: * Apply warm moist washcloths * Express milk as needed to relieve engorgement * Wear loose clothing Bottle Feeding: * May apply ice packs * For sore nipples: * Identify correct latch-on * Apply warm moist washcloths before and after nursing * Air dry nipples after nursing * May apply Lansinoh cream to nipples PERINEAL CARE: * Until bleeding stops, use your brittani bottle after urinating * Change your pad frequently throughout the day * You may take sitz baths several times a day (fill your bathtub with warm water and soak for 20 minutes.) Do NOT bathe in the water * No tub baths until seen by your physician - You may shower ACTIVITY: * Rest as much as possible. * Do not exercise or lift anything heavier than your baby (such as laundry or other children.) * Avoid stairs or driving as much as possible. * Do not put anything into the vagina. No douching, tampons, or sexual activity until seen by physician. NOTIFY PHYSICIAN IF YOU HAVE ANY QUESTIONS OR IF ANY OF THE FOLLOWING SYMPTOMS OCCUR: * If your vaginal bleeding becomes foul smelling. * If your vaginal bleeding becomes more heavy than a period or if your bleeding changes from pink to bright red. However, you may pass an occasional walnut- sized clot once or twice for the first week . * If you experience a sharp, shooting pain in your calves. * If you discover a hard, reddened area on your breast or if you experience flu- like symptoms. DIET: * Eat regular, well-balanced meals. * Drink plenty of fluids daily. If , drink to thirst. <Adrian Becerra MD - Last Filed: 09/10/24 06:36> Patient Language: Pashto <Adrian Becerra MD - Last Filed: 09/10/24 06:36> Stand Alone Forms: General Discharge Information <Adrian Becerra MD - Last Filed: 09/10/24 06:36> Follow-up/Referrals: Adrian York MD [Physician] - <Adrian Becerra MD - Last Filed: 09/10/24 06:36> Discharge Medications: Continued PNV cmb#95-ferrous fumarate-FA [] 28 mg iron- 800 mcg tablet 1 tablet PO DAILY docusate sodium [Colace] 100 mg capsule 100 mg PO DAILY <Adrian Becerra MD - Last Filed: 09/10/24 06:36> Date of admission: 09/07/24 00:28 <Adrian Becerra MD - Last Filed: 09/10/24 06:36> Primary Care Provider: Kael,Adrian Jara <Adrian Becerra MD - Last Filed: 09/10/24 06:36> Admitting Provider: Adrian York <Adrian Becerra MD - Last Filed: 09/10/24 06:36> Attending physician on admission: Adrian York <Adrian Becerra MD - Last Filed: 09/10/24 06:36> Condition: Stable <Adrian Becerra MD - Last Filed: 09/10/24 06:36>
[2024-09-07] MEDS: WITCH HAZEL 40 PADS 1 PAD TOPICAL (19:09)
[2024-09-07] MEDS: BENZOCAINE 20% AER SPR (*SP) 56 GM CAN 1 SPRAY TOPICAL (19:09)
[2024-09-07] MEDS: DOCUSATE SODIUM 100 MG CAPSULE PO (21:30)
[2024-09-07] MEDS: ACETAMINOPHEN 325 MG TABLET 650 MG PO (21:30)
[2024-09-08] MEDS: ACETAMINOPHEN 325 MG TABLET 650 MG PO ×2 (05:20→19:23)
[2024-09-08] MEDS: SIMETHICONE 80 MG TAB.CHEW PO ×7 (05:20→19:23)
[2024-09-08 05:47] LABS: Hematocrit 30.5 % (37.0-47.0); Hemoglobin 10.6 g/dL (12.0-15.0)
[2024-09-08 08:08] VITALS: BP 125/73; PULSE 84; RESP 18; TEMP 36.9; O2SAT 98
[2024-09-08] MEDS: IBUPROFEN 600 MG TABLET PO ×2 (08:25→14:35)
[2024-09-08] MEDS: DOCUSATE SODIUM 100 MG CAPSULE PO ×2 (08:26→17:57)
[2024-09-08] MEDS: MULTIVIT/MIN/PREN/FOL AC/IRON TABLET 1 TAB PO (08:26)
--- NOTE | 2024-09-08 08:59 | P.PNOB_ITS ---
OB - PN: Subj Subjective Date/time seen: 09/08/24 08:59 Patient comments: no complaints and pain well controlled baby status: doing well OB - PN: Obj Data Labs 09/08/24 04:46 Labs: Laboratory Results - last 24 hr 09/08/24 04:46 Hgb 10.6 L Hct 30.5 L OB - PN A/P Plan day: 1 Plan: routine care, discharge home and follow up 6 weeks Time Spent With Patient Time: Total time spent is greater than 50% in coordination of care (as documented) at patient's floor/unit and/or counseling patient: Exam 2 : Bimanual exam- vagina & uterus: other (Uterus firm, nt @U)
--- NOTE | 2024-09-08 14:45 | PC.NURSE ---
Introductions were made, then consulted with patient to assess needs related to . Mother led the conversation with her?plans to feed?her and the?experience so far. Mother states that is hard to wake for feedings at times. Encouraged understanding of the benefits of skin to skin (demonstrating unwrapping and placing upright on her chest), stimulating with massage touch, changing positions to encourage wakefulness, how to watch for early feeding cues, responsive feeding, feeding on demand (aiming for 8-12 times in 24 hours, about every 2-3 hours), milk production, building/maintaining a milk supply, duration of feeding, signs of adequate intake/output and how to record on the feeding sheet. Mother works well with her infant with encouragement and education. Reviewed positioning and ear, shoulder, hip alignment, supporting the breast to facilitate a deep latch, asymmetrical latch (off-center), leading with the chin with a big, open, wide gape and body close to mother. latched optimally to the [left] breast in [cross cradle] position. Education given to the mother of how to visualize the suckling (with good rocking jaw motion), swallows (dropping of the lower jaw) and how to listen for drinking at the breast (the ka sound). Infant was [able] to maintain latch without pain to mother protecting the nipple with optimal positioning and latching. Reviewed comfort measures of healing with a warm, wet washcloth to rinse breast, then leave open to air-dry, good handwashing when or touching the breast/nipples to prevent infection. Mother voiced understanding of skin to skin, stimulating with massage touch, responsive feedings, hand expressed colostrum, talking to infant to encourage if it has been 2 -2.5 hours since the start of the last , to call if does not latch, or if there is discomfort with . Parents voiced understanding of information, demonstrated learning and will call if there is a request for assistance. Reported to the Primary RN.
[2024-09-08 16:02] VITALS: BP 124/77; PULSE 82; RESP 18; TEMP 36.8; O2SAT 97
[2024-09-08 19:16] VITALS: BP 129/63; PULSE 75; RESP 16; TEMP 36.7; O2SAT 98
[2024-09-08 19:30] VITALS: PULSE 75; RESP 16; O2SAT 98
[2024-09-08 22:40] VITALS: BP 95/52; PULSE 75; RESP 16; TEMP 36.6; O2SAT 97
[2024-09-09] MEDS: IBUPROFEN 600 MG TABLET PO ×2 (01:10→07:06)
[2024-09-09] MEDS: MULTIVIT/MIN/PREN/FOL AC/IRON TABLET 1 TAB PO (07:06)
[2024-09-09] MEDS: DOCUSATE SODIUM 100 MG CAPSULE PO (07:06)
[2024-09-09] MEDS: SIMETHICONE 80 MG TAB.CHEW PO (07:06)
[2024-09-09 07:25] VITALS: BP 127/84; PULSE 68; RESP 16; TEMP 36.7; O2SAT 97
--- NOTE | 2024-09-09 09:36 | P.PNOB_ITS ---
OB - PN: Subj Subjective Date/time seen: 09/09/24 09:36 Interval history: peds requested infant stay so dc cancelled. Patient comments: no complaints and pain well controlled baby status: doing well OB - PN: Obj Data Labs 09/08/24 04:46 OB - PN A/P Plan day: 2 Plan: discharge home Time Spent With Patient Time: Total time spent is greater than 50% in coordination of care (as documented) at patient's floor/unit and/or counseling patient: Exam 2 : Bimanual exam- vagina & uterus: other (Uterus firm, nt @U)
--- NOTE | 2024-09-09 12:33 | PC.NURSE ---
Patient viewed the discharge video Mother & Baby Care, The First Two Weeks . Patient was given the opportunity and encouraged to ask questions. Patient verbalized understanding of information shared and has been given the mother/baby guide for home reference.
[2024-09-10 09:55] VITALS: BP 131/83; PULSE 93; RESP 18; TEMP 36.9; O2SAT 100
--- NOTE | 2024-09-10 10:00 | PC.NURSE ---
Request from follow up RN to see patient regarding questions. Baby is gaining weight and feeding well at home. Mom has some general nipple soreness and states that most latches are not terribly painful but that she notices that her nipple is smashed after some feedings. We reviewed that baby has a recessed chin and that as he grows his mouth will accommodate mom's nipple better over time. She knows that when the latch doesn't feel right she needs to break suction and latch again. If she notices nipple cracking or bleeding she needs to be seen for a latch assessment. She seems to have a good basis of knowledge (she took the class) and works well with baby. She hears frequent swallows and her significant other assists with observing baby for signs of a deep latch at breast. We discussed tilting baby's head back when latching but that during the feeding session, baby's chin and nose should be close to the breast throughout. Mom is encouraged to let us know if latching doesn't start feeling better soon so that we can make an appointment for a feeding observation. Use of a nipple shield was mentioned as a tool for getting a deeper latch if mom continues to have issues. She is instructed that baby needs to remain very close to the breast with shield use and that the shield should not be slipping in and out of his mouth during feeding. She is advised to reference [employer]'s web site for up to date and accurate information. Patient is strongly encouraged to call if she has any further questions or if she needs to make an appointment with us. Patient verbalizes understanding and will call if needed.
== END 2024-09-09 13:55 | disposition home or self-care (01) | DRG 807 ==
LOC: ANHOB2 09-11 08:45 → ANHLDR 09-11 08:45
PROVIDERS: Admitting Provider Obstetrics & Gynecology; PCP Family Medicine; Visit Provider Obstetrics & Gynecology Gynecology
DX: O70.1 Second degree perineal laceration during delivery (principal); Z37.0 Single live birth; Z3A.39 39 weeks gestation of pregnancy
CPT/HCPCS: 36415; 85014; 85018; 85025; 86593; 86703; 86850; 86900; 86901; A9270; G0432; J1200; J2405; J2590; J2795; J7030; J7120

== ENCOUNTER 2024-09-14 13:58 | Outpatient (RCR) | payer OTHER, SELFPAY ==
--- NOTE | 2024-09-14 16:02 | PC.NURSE ---
In- 1400 Out- 1525 Reason for visit: Latch check, weighted feed. with low output at first pediatricians visit. Flange fit check for mom. History: Mom is a who had a vaginal delivery on 09/07/24. Mom had been exclusively her until she went to his follow up appointment the day after going home from the hospital. He saw his right of way worker the next day and she recommended supplementing after each feeding according to mom. Mom reports she also has some concerns with her pump flange fit and wonders if it is correct because she has occasional pain with pumping. MOm has a nipple shield at home for PRN use but has not been using it. Infant History: Baby tg is a healthy 1 week old infant. He had low urine output at his first right of way worker appointment, so his right of way worker recommended they start supplementing after each feeding. Mom is currently feeding him every 2-3 hours at the breast first for about 15 min on average, then she tops him up with a bottle after. Mom is also pumping about 1-1.5 oz after each feed. Infant does have a recessed chin which mom reports has made harder at times. Mom reports infant currently has been feeding about every 2-3 hours, and has had 5-6 wet diapers in a day and 7+ stools. Observations: Mom independently latches infant to the L breast. Infants latch appears optimal with no pain reported from mom. She was able to feed infant 54 ml from the L breast in 20 min. seemed satisfied and was sleeping after the 20 min feeding at the L breast. 54 ml is 1.9oz of milk. We also measured moms nipples with a nipple measuring tool to confirm flange sizing. Moms nipples both measured size 19. María has been using a size 24 flange so it was suggested to go down a size to a 21. Mom was given new 21 flanges during the visit. weight: 7lb 4.8 Lowest weight: 7lb 0 Last weight: 7lb 1 Pre-feed weight: 7lb 6.2 Post-feed weight: 7lb 8.1 Plan of Care: Mom was encouraged to continue supplementing infant per her right of way worker's guidance until she follows up with her pedi on tuesday. Mom did appear teary and stressed with triple feeding. We discussed that if has a decent latch & feeds for more than 15 min at the breast she does not need to pump after every feeding. Mom was encouraged to keep pumping for at least a total of 2 times a day to continue to boost her milk supply while supplementing, and pump after a feeding that is less than 15min. We discussed keeping infants head in an upward tilted sniffing position throughout the feeding to keep him in the deepest latch possible due to his recessed chin. We also discussed breaking suction if mom feels pain or thinks it is a bad latch. We reviewed when to use her nipple shield for pain relief or to help infant get a deeper latch at times until he grows and is able to achieve deeper latching. We discussed the need for pumping extra when using a nipple shield. Follow up plans: Mom María Salvador has a follow up appointment scheduled with his right of way worker on tuesday. She was encouraged to call us for a follow up if things do not improve with her latching or with pumping. She was instructed that she could also come back for another appointment with for a weighted feed if necessary. Mom verbalized understanding.
--- NOTE | 2024-09-18 18:11 | PC.NURSE ---
1814. Called María for a follow up phone conversation after her outpatient appointment on 09/14. She reports that has gained weight and per her pediatricians recommendations she is still currently supplementing with formula after feedings. We discussed ways to boost her supply with power pumping and pumping after feedings. María verbalized understanding. She reports she has no other questions or concerns at this time but will call our number with future questions/concerns.
== END 2024-12-13 23:59 | disposition home or self-care (01) ==
LOC: ANHOBOP 13:58
PROVIDERS: PCP Family Medicine; Visit Provider Obstetrics & Gynecology
DX: Z39.1 Encounter for care and examination of lactating mother (principal)
CPT/HCPCS: 99213; G0463